=== PATIENT | male | born 1970 | race Caucasian/White ===

== ENCOUNTER 2021-12-22 01:18 | Emergency (ER) | payer MEDICAID, SELFPAY ==
[2021-12-22 01:24] VITALS: BP 200/120; PULSE 66; RESP 18; TEMP 36.9; O2SAT 99
--- NOTE | 2021-12-22 01:45 | DI.CT_ITS ---
Exam(s) CT RENAL COLIC WO EXAM: CT RENAL COLIC WO CLINICAL HISTORY: right flank pain. TECHNIQUE: Imaging Protocol: Axial computed tomography images with coronal and sagittal reformatted images were created and reviewed. CONTRAST MATERIAL: Noncontrast COMPARISON: No exams were available for comparison FINDINGS: ABDOMEN: Lung Bases: Normal where visualized. Liver: Normal attenuation. No measurable mass. Gallbladder and biliary tract: Gallbladder unremarkable. Common bile duct is dilated to 17 millimete rs. No radiodense calculus . Pancreas: Normal density, no calcifications or inflammatory process. Spleen: Normal. Kidneys: Normal size, contour and axis. No radiodense stones or obstructive uropathy. Small area of low density in the upper pole of the right kidney, likely cyst. No suspicious masses seen. Adrenal glands: No masses seen. Abdominal Aorta: Abdominal portion non-dilated. PELVIS: Bladder: Symmetric distention, no gross wall thickening. Bowel: No obstruction or bowel wall thickening. Appendix normal. Moderate to increased quantity of s tool. Peritoneal cavity: No ascites, collection or mesenteric inflammatory response. Bones: Within normal limits. IMPRESSION: Dilatation of the common bile duct without visible obstructing stone or mass. Gallbladder appears no rmal. Small right presumed renal cyst. No evidence of hydronephrosis or calcifications. RADIATION DOSE DELIVERED: 1,217.08mGy.cm Total DLP DATA REPOSITORY: All CT scans at this facility are submitted to the National Radiology Data Registry (NRDR) Dose Index Registry (DIR) with the [employer] (A[employer]). RADIATION OPTIMIZATION: All CT scans at this facility use at least one of these dose optimization te chniques: automated exposure control; mA and/or kV adjustment per patient size (includes targeted exa ms where dose is matched to clinical indication); or iterative reconstruction.
--- NOTE | 2021-12-22 01:47 | W.ED.GENAD ---
Discharge Plan Disposition Patient Disposition: HOME Condition: Stable Discharge Details Clinical Impression: Back pain ED Provider: Luis Felipe Mendez Home Meds and New Rx's Prescriptions: Continued lisinopril 40 mg Tablet 40 mg PO DAILY 0RF amlodipine 10 mg Tablet 10 mg PO DAILY 0RF Discharge Instructions Instructions: Back Pain (ED) Additional Instructions: your urine did not show evidence of infection follow up with your primary care provider within 1 week and start taking your blood pressure medicine as prescribed if you feel more ill, have severe worsening pain or persistent vomit return to the emergency department Medical Decision Making 50 yo male with hx of htn, who has not taken his bp meds for a few days because he hasn't picked them up at the pharmacy, comes in with complaint of right lower back pain for several months with no known falls or trauma. He states he was seen intially at [facility] ER, had xrays done and was told it was pulled muscle. He states the pain has been constant and he can't think of anything that makes it better or worse. He has had intermittent nausea with it as well. No chest pain, dyspnea. He denies burning with urination or gross hematuria. He states he came in tonight because he googled his symptoms and was worried about a kidney infection based on this. He localizes the pain to the right lower back. No rashes, no erythema, no warmth. No midline pain, no saddle anesthesia, normal sensation and pulses in the legs and normal reflexes. Seems like it could be musculoskeletal, no findings to suggest cauda equina or spinal epidural abscess. Will evaluate for uti/pyelo with ua and also obtain renal colic ct to evaluate for kidney stone patient's pain resolved with one dose of toradol, labs unremarkble. CT shows no stone, they do note mild prominence of biliary tree. He has no upper abdomen pain and no tenderness on exam so feel this is likely incidental findings. No elevation in lfts so doubt acute obstruction of biliary tree. He is stable for d/c, I advised to f/u with his pcp and return precautions given. He was advised of findings on CT and if he develops ruq pain to return to the ED and also advised to let his pcp know of the findings Differential Diagnosis Differential Diagnosis: strain, spasm, uti, kidney stone Imaging Data Radiologic Study: Attestation: I personally reviewed and interpreted this imaging study as follows: Imaging: CT Scan Radiologist's impression: Mild prominence of the biliary ducts, correlate with patient labs to exclude obstruction with MRCP or ERCP for further evaluation as clinically indicated. Lab Data Lab results reviewed: Yes I reviewed the patient's lab results. HPI General Mode of arrival: ambulatory. Date/Time Provider Initiated Documentation: 12/22/21 01:20. Limitations to Documentation: no limitations. Information obtained by: patient. History of Present Illness 50 year old M presents to the emergency department with the chief complaint of right lower back pain, described as moderate, Quality is described as aching, and is localized to the back. Patient reports no radiation. Patient started experiencing this month(s) (3) and it has been constant. improves with No relieving factors improve symptom(s), No exacerbating factors reported . Patient notes nausea/vomiting. Patient did receive the following treatments prior to arrival, none Related Data Home Medications Medication Instructions Recorded Confirmed amlodipine 10 mg tablet 10 mg PO DAILY 12/22/21 12/22/21 lisinopril 40 mg tablet 40 mg PO DAILY 12/22/21 12/22/21 Allergies Allergy/AdvReac Type Severity Reaction Status Date / Time cephalexin [From Keflex] Allergy Unverified 12/22/21 01:29 General Stated Complaint: Urinary DILLON: 3 Review of Systems All systems reviewed & are unremarkable except as noted in HPI and below Constitutional Constitutional: Denies chills and Denies weakness Cardiovascular Cardiovascular: Denies chest pain and Denies dyspnea Respiratory Respiratory: Denies cough and Denies dyspnea Gastrointestinal Gastrointestinal: Denies abdominal pain Genitourinary Genitourinary: Denies dysuria Integumentary/Breasts Skin/Breast: Denies rash Neurologic Neurologic: Denies weakness [facility] Active Problems (Updated 12/22/21 @ 03:26 by Luis Felipe Mendez MD) Back pain (Acute) Social History Smoking/Tobacco Use Status: Never Smoking risk assessment performed?: Yes Drug use: Daily Substance use type: marijuana Do you feel safe at home: Yes Do you feel safe in your relationship?: Yes Course Vital Signs Vital signs: Vital Signs Temperature 36.9 C 12/22/21 01:24 Pulse 66 12/22/21 01:24 Respiratory Rate 18 12/22/21 01:24 Pulse Oximetry 99 12/22/21 01:24 Temperature 36.9 C 12/22/21 01:24 Temperature Source Skin 12/22/21 01:24 Pulse 66 12/22/21 01:24 Respiratory Rate 18 12/22/21 01:24 Respiratory Effort 12/22/21 01:27 Pulse Oximetry 99 12/22/21 01:24 Oxygen Delivery Method Room Air 12/22/21 01:24 Oxygen Flow Rate 0 12/22/21 01:24 Pain Level 8 12/22/21 01:27 Lab/Test Results Lab/Test Results: 12/22/21 01:40 Urine - Voided Urine Culture - Pending
[2021-12-22] MEDS: Ketorolac 15 MG/ML VIAL IVP (02:00)
[2021-12-22] MEDS: Normal Saline 1,000 ML 1000 ML IV (02:00)
[2021-12-22 02:01] LABS: Abs Immature Grans 0.02 10^3/uL (0.0-0.06); Absolute Basophil Count 0.07 10^3/uL (0.0-0.2); Absolute Eosinophil Count 0.42 10^3/uL (0.0-0.7); Absolute Lymphocyte Count 3.21 10^3/uL (1.2-3.4); Absolute Monocyte Count 0.69 10^3/uL (0.1-0.8); Basophils % 0.8; Eosinophils % 4.7; HCT 42.1 % (40.0-50.0); HGB 13.7 g/dL (13.5-17.5); Immature Grans % 0.2; Lymphocytes % 35.6; MCH 28.8 pg (27.0-33.0); MCHC 32.5 % (32.0-36.0); MCV 89 fL (80-95); MPV 9.8 fL (8.0-11.0); Monocytes % 7.7; Platelet Count 380 10^3/uL (130-400); RBC 4.75 10^6/uL (4.36-5.78); RDW 13.7 % (11.8-14.1); RDW-SD 44.5 fL; WBC 9.01 10^3/uL (4.4-10.8)
[2021-12-22 02:07] VITALS: BP 167/114; PULSE 59; RESP 18; O2SAT 99
[2021-12-22 02:11] LABS: Bilirubin Negative (Negative); Blood Negative (Negative); Clarity Clear (Clear); Glucose Negative (Negative); Ketones Negative (Negative); Leukocyte Esterase Negative (Negative); Nitrite Negative (Negative); Specific Gravity >= 1.030 (1.005-1.025); Urobilinogen 0.2 EU/dL (Up TO 0.2); pH 5.5 (5-8)
[2021-12-22 02:12] LABS: ALT 23 U/L (16-63); AST 18 U/L (15-37); Alkaline Phosphatase 69 U/L (46-116); Anion Gap 4.1 mmol/L (3-11); BUN 21 mg/dL (7-18); Bilirubin, Total 0.2 mg/dL (0.2-1.0); CO2 33.9 mmol/L (21.0-32.0); CREATININE 1.1 mg/dL (0.70-1.30); Calcium 8.8 mg/dL (8.5-10.1); Chloride 104 mmol/L (98-107); Glucose 123 mg/dL (74-106); Potassium 3.8 mmol/L (3.5-5.1); Sodium 142 mmol/L (136-145); Total Protein 7.6 g/dL (6.4-8.2)
[2021-12-22 02:16] VITALS: BP 164/92
--- NOTE | 2021-12-22 03:07 | DI.VRAD_ITS ---
PROCEDURE INFORMATION: Exam: CT Abdomen And Pelvis Without Contrast Exam date and time: 12/22/2021 1:56 AM Age: 50 years old Clinical indication: Abdominal pain; Patient HX: Right flank pain; Per PT: Ongoing 3 months TECHNIQUE: Imaging protocol: Computed tomography of the abdomen and pelvis without contrast. COMPARISON: No relevant prior studies available. FINDINGS: Liver: Normal. No mass. Gallbladder and bile ducts: Mild prominence of the biliary ducts, correlate with patient labs to exclude obstruction with MRCP or ERCP for further evaluation as clinically indicated. Pancreas: Normal. No ductal dilation. Spleen: Normal. No splenomegaly. Adrenal glands: Normal. No mass. Kidneys and ureters: Normal. No hydronephrosis. Stomach and bowel: Unremarkable. No obstruction. No mucosal thickening. Appendix: No evidence of appendicitis. Intraperitoneal space: Unremarkable. No free air. No significant fluid collection. Vasculature: Unremarkable. No abdominal aortic aneurysm. Lymph nodes: Unremarkable. No enlarged lymph nodes. Urinary bladder: Unremarkable as visualized. Reproductive: Unremarkable as visualized. Bones/joints: Unremarkable. No acute fracture. Soft tissues: Unremarkable. IMPRESSION: Mild prominence of the biliary ducts, correlate with patient labs to exclude obstruction with MRCP or ERCP for further evaluation as clinically indicated. Dictated and Authenticated by: Luis Felipe Marsh MD. Ordering:KATHIE Briscoe MD
[2021-12-22 03:36] LABS: Bilirubin, Total 0.2 mg/dL (0.2-1.0)
[2021-12-22 03:37] LABS: Bilirubin, Direct < 0.1 mg/dL (0.0-0.2)
--- OUTSIDE RECORDS SUMMARY | 2021-12-22 03:38 | XMS_ITS ---
:1970 Author Care Team Providers Name Role Phone JALEESA GALLO Primary Care Provider Unavailable Allergies Code Code System Name Reaction Severity Status Onset 20310128 RxNorm Keflex Hives ? Active ? RxNorm Sevoflurane Other Severe Active ? 20231025 RxNorm Tylenol ? ? Active ? Medications Name Status Start Date Stop Date ? ? Abilify 10 mg tablet Completed 07/11/2016 07/11/2016 1 (one) Tablet: qam - every morning amlodipine 10 mg tablet Active ? Not avai lable TAKE ONE TABLET BY MOUTH EVERY DAY FOLLOW UP APPOINTMENT NEEDED PER amoxicillin 500 mg tablet Completed 06/27/20152014 1 Tablet: three times daily azithromycin 250 mg tablet Completed 12/25/201112/29 1 (one) Tablet: see below azithromycin 500 mg tablet Completed ? 05/14 clindamycin HCl 300 mg capsule Completed ? 0 04/26/2019 cyclobenzaprine 10 mg tablet Active ? Not available TAKE ONE TABLET BY MOUTH THREE TIMES A DAY NEEDED divalproex 250 mg tablet,delayed release Completed 016 09/20/2015 2 (two) Tablet DR: at bedtime fluconazole 100 mg tablet Completed ? 2019 fluconazole 200 mg tablet Completed ? 2019 ibuprofen 200 mg capsule Active ? Not rupa ilable Take 4 capsules every 6 hours by oral route as needed. ibuprofen 600 mg tablet Completed 09/20/2015 09/20/19 16 1 Tablet: Every 8 hours as needed lisinopril 30 mg tablet Completed ? 01/06/20 19 Take 1 tablet every day by oral route. lisinopril 40 mg tablet Active ? Not avai lable TAKE ONE TABLET BY MOUTH EVERY DAY methylphenidate ER 27 mg tablet,extended release 24 hr Completed 12/22/2011 12/22/2011 1 Tablet ER: daily methylprednisolone 4 mg Completed ? 05/14/20 20 tablets in a dose pack naproxen 500 mg tablet Active ? Not avail able TAKE ONE TABLET BY MOUTH TWICE A DAY NEEDED nystatin 100,000 unit/mL oral Completed ? suspension oxycodone-acetaminophen 5 Completed ? 2019 mg-325 mg tablet Seroquel 100 mg tablet Completed ? 9 Take 1 tablet every day by oral route at bedtime. Seroquel XR 50 mg tablet,extended release Completed 201109/15/2011 1 Tablet ER 24HR: at bedtime sulfamethoxazole 800 mg-trimethoprim 160 mg tablet Active ? Not available TAKE ONE TABLET BY MOUTH TWICE A DAY FOR 10 DAYS tramadol 50 mg tablet Completed 09/20/2015 09/20/2015 1 (one) Tablet: every 8 hours as needed trazodone 50 mg tablet Completed ? 8 Take 1 tablet every day by oral route. Vyvanse 50 mg capsule Completed 09/20/2015 09/20/2015 1 Capsule: daily Vyvanse 70 mg capsule Completed ? 12/22/2018 Take 1 capsule every day by oral route. Problems Name Status Onset Date Source ? Hypertensive Disorder Active 05/14/2020 ? Bipolar Disorder Unknown ? History Borderline Personality Disorder Active ? History Depressive Disorder Unknown ? History Attention Deficit Hyperactivity Active ? History Disorder Otitis Media Unknown ? History Hearing Loss Active ? History Essential Hypertension Unknown ? History Benign Essential Hypertension Unknown ? Hi story Allergic Rhinitis Unknown ? History Cellulitis and Abscess of Foot Unknown ? H istory Excluding Toe Procedure by Method Unknown ? History Long-term Current Use of Drug Therapy Unknown ? History Procedures None recorded. Results Lab Results Date Name Specimen Result Interpretation Description Value Range Status Address ? 01/03/2021 CBC W/ Auto BLD ? Wbc 8.4 10*3/uL 5.0-10.0 F inal [place] Diff 10*3/uL [facility] (Internal) : [address] ? ? BLD ? Rbc 5.07 10*6/uL 4.60-6.00 Final N orth 10*6/uL [facility] (Internal) : [address] ? ? BLD ? Hgb 14.6 g/dL 14.0-18.0 Final Nort h g/dL [facility] (Internal) : [address] ? ? BLD ? Hct 44.2 % 41.0-51.0 Final [place] [facility] (Internal) : [address] [place] ? ? BLD ? Mcv 87.2 fL 80.0-96.[address] [facility] (Internal) : [address] ? ? BLD ? Mch 28.8 pg 26.0-32.0 Final [facility] (Internal) : [address] [place] ? ? BLD ? Mchc 33.0 g/dL 31.0-35.0 [facility] (Internal) : [address] [place] ? ? BLD ? Rdw 13.2 % 11.5-14.5 Final [facility] (Internal) : [address] ? ? BLD ? Plt 348 10*3/uL 130-450 Final Nort h 10*3/uL [facility] (Internal) : [address] ? ? BLD ? Anc 3.94 10*3/uL ? Final Nort [facility] (Internal) : [address] [place] ? ? BLD ? Nlr 1.26 0.00-3.20 Final [facility] (Internal) : [address] [place] ? ? BLD ? Neutro 46.9 % 40.0-75.0 Final [facility] (Internal) : [address] [place] ? ? BLD ? Lymph 37.3 % 20.0-50.0 Final [facility] (Internal) : [address] [place] ? ? BLD ? Ward 8.1 % 2.0-10.0 Final [facility] (Internal) : [address] [place] ? ? BLD High Eos 7.2 % 1.0-6.0 % Final [facility] (Internal) : [address] [place] ? ? BLD ? Baso 0.4 % 0.0-1.0 % Final [facility] (Internal) : [address] ? ? BLD ? Ig 0.1 % 0.0-0.9 % Final [facility] (Internal) : [address] 01/03/2021 HbA1C BLD ? Ha1C 5.7 % 4.0-6.0 % Final Nor th (Hemoglobin Count ry a1C), Blood Hospi semaj Lab (Internal) : [address] 01/03/2021 BMP, Serum or S ? g/r 98 mg/dL 74-106 [facility] Plasma mg/dL [facility] ([facility] : [address] ? ? S High Bun 23 mg/dL 9-20 Final North mg/dL [facility] ([facility]) : [address] [place] ? ? S ? Crea 1.10 mg/dL 0.66-1.25 Final Nor th mg/dL [facility] ([facility]) : [address] t ? ? S ? Ca 9.5 mg/dL 8.4-10.2 Final North mg/dL [facility] ([facility]) : [address] t ? ? S ? Na 143 mmol/L 137-145 Final [facility] mmol/L [facility] ([facility]) : [address] t ? ? S ? K 4.4 mmol/L 3.5-5.1 Final [facility] mmol/L [facility] ([facility]) : [address] t ? ? S ? Cl 103 mmol/L 98-107 Final [facility] mmol/L [facility] ([facility]) : [address] [place] ? ? S High Tco2 31.0 mmol/L 22.0-30.0 Final No rth mmol/L [facility] ([facility]) : [address] 01/03/2021 Lipid Panel, S ? Chol 179 mg/dL 50-200 [facility] Serum mg/dL [facility] ([facility]) : [address] t ? ? S ? Trig 94 mg/dL 10-150 Final North mg/dL [facility] (Internal) : [address] t ? ? S ? Hdl 46 mg/dL 40-60 Final [facility] mg/dL [facility] ([facility]) : [address] t ? ? S ? Ldl 114 mg/dL 0-130 Final North mg/dL [facility] (Internal) : [address] 04/20/2019 Pathology TISS - Report results ? Final N orth Study below [facility] ([facility] : [address] 12/22/2018 CBC W/ Auto BLD - Wbc 9.0 10*3/uL 5.0-10.0 F inal [place] Diff 10*3/uL [facility] ([facility] : [address] ? ? BLD - Rbc 4.87 10*6/uL 4.60-6.00 Final N orth 10*6/uL [facility] (Internal) : [address] ? ? BLD - Hgb 14.2 g/dL 14.0-18.0 Final Nort h g/dL [facility] (Internal) : [address] ? ? BLD - Hct 42.4 % 41.0-51.0 Final [facility] (Internal) : [address] ? ? BLD - Mcv 87.1 fL 80.0-96.0 Final [facility] (Internal) : [address] ? ? BLD - Mch 29.2 pg 26.0-32.0 Final [place] pg [facility] (Internal) : [address] ? ? BLD - Mchc 33.5 g/dL 31.0-35.0 Final Nort h g/dL [facility] (Internal) : [address] ? ? BLD - Rdw 13.1 % 11.5-14.5 Final [facility] (Internal) : [address] ? ? BLD - Plt 346 10*3/uL 130-450 Final Nort h 10*3/uL [facility] (Internal) : [address] ? ? BLD - Anc 4.91 10*3/uL ? Final Nort h [facility] (Internal) : [address] ? ? BLD - Neutro 54.4 % 40.0-75.0 Final [facility] (Internal) : [address] ? ? BLD - Lymph 30.8 % 20.0-50.0 Final [facility] ([facility] : [address] ? ? BLD - Ward 7.2 % 2.0-10.0 Final [facility] (Internal) : [address] ? ? BLD High Eos 6.8 % 1.0-6.0 % Final [facility] (Internal) : [address] ? ? BLD - Baso 0.4 % 0.0-1.0 % Final [facility] (Internal) : [address] ? ? BLD - Ig 0.4 % 0.0-0.9 % Final [facility] (Internal) : [address] 12/22/2018 CMP, Serum or S - g/r 99 mg/dL 74-106 [facility] Plasma mg/dL [facility] ([facility] : [address] ? ? S High Bun 22 mg/dL 9-20 Final [place] mg/dL [facility] ([facility]) : [address] t ? ? S - Crea 1.10 mg/dL 0.66-1.25 Final Nor th mg/dL [facility] ([facility]) : [address] ? ? S - Ca 9.3 mg/dL 8.4-10.2 Final [facility] mg/dL [facility] ([facility] : [address] t ? ? S - Na 139 mmol/L 137-145 Final [facility] mmol/L [facility] ([facility]) : [address] ? ? S - K 4.3 mmol/L 3.5-5.1 Final [facility] mmol/L [facility] ([facility] : [address] t ? ? S - Cl 104 mmol/L 98-107 Final [facility] mmol/L [facility] ([facility]) : [address] ? ? S - Tco2 27.0 mmol/L 22.0-30.0 Final No rth mmol/L [facility] ([facility]) : [address] ? ? S - Tp 7.3 g/dL 6.3-8.2 Final North g/dL [facility] (Internal) : [address] ? ? S - Alb 4.0 g/dL 3.5-5.0 Final [place] g/dL [facility] (Internal) : [address] t ? ? S - Tbil 0.3 mg/dL 0.2-1.3 Final [place] mg/dL [facility] (Internal) : [address] t ? ? S - Alp 57 U/L 50-136 Final North U/L [facility] (Internal) : [address] ? ? S - Alt (Sgpt) 29 U/L 21-72 U/L Final No rth [facility] (Internal) : [address] ? ? S - Ast (Sgot) 29 U/L 17-59 U/L Final No rth [facility] (Internal) : [address] 12/22/2018 TSH, Serum or S - Tsh 3.00 0.47-4.68 Fin [facility] Plasma u[IU]/mL u[IU]/mL [facility] L ab (Internal) : [address] ? Venipuncture ? Location Right ? ? P _nc Primary Antecubital [facility] [place]: [address], [place] ? ? ? Needle 21g ? ? P_nc Prim raghu Vacutainer Care [place]: [address], [place] ? ? ? Number of 1 ? ? P_nc P rimary Attempts Care [place]: [address], [place] ? ? ? Successful Yes ? ? P_nc Primary Care [place]: [address], [place] ? ? ? Dressing Pressure ? ? P_nc Primary Band-aid Care Applied [place]: [address], [place] ? ? ? Initials hj ? ? P_nc Pr imary Care [place]: [address], [place] ? Venipuncture ? Location Right ? ? P _nc Primary Antecubital Care [place]: [address] ? ? ? Needle 21g ? ? P_nc Prim raghu [facility] [place] ? ? ? Number of 1 ? ? P_nc P rimary Attempts Care [place]: [address] [facility] [place] ? ? ? Successful Yes ? ? P_nc Primary Care [place]: [address] [facility], [place] ? ? ? Dressing Pressure ? ? P_nc Primary Band-aid Care Applied [place]: [address] [facility], [place] ? ? ? Initials DG ? ? P_nc Pr im[facility] [place] [address] [facility] Past Encounters 01/03/2021 Pain of Right Ankle Joint; Laceration of Lower Leg; Hypertensive Disorder Lisbeth Hernández, RECORD FILING CLERK: [address] [facility] [place] [id number], Ph. Social History Tobacco Smoking Status Never Smoker Notes: [facility] List Vaccine Type influenza, seasonal, injectable, preserv ative free 09/12/2011?0.5 mL 06/19/2014?0.5 mL tetanus toxoid, unspecified formulation 08/24/2016 Plan of Care Reminders Provider Appointments None ? ? recorded. Lab None ? ? recorded. Referral None ? ? recorded. Procedures None ? ? recorded. Surgeries None ? ? recorded. Imaging None ? ? recorded. Vitals 01/03/2021 01:40PM Acute 20 Weight Blood Pressure (1) 208/112 mm[Hg] (2) 194/114 mm[Hg] 05/14/2020 08:00AM Follow Up 20 Weight Blood Pressure 116.89 kg 136/84 mm[Hg] 04/26/2019 10:40AM Acute 20 Height Weight BMI Blood Pressure 183.52 cm 117.03 kg 34.7 kg/m2 150/90 mm[Hg] 12/22/2018 08:00AM Follow Up 20 Height Weight BMI Blood Pressure 183.52 cm 126.1 kg 37.4 kg/m2 134/100 mm[Hg] 02/03/2018 10:40AM Acute 20 Height Weight BMI Blood Pressure 186.05 cm 122.65 kg 35.4 kg/m2 (1) 178/113 mm[ Hg] (2) 172/112 mm[H g] 07/11/2016 Weight Blood Pressure 109.91 kg 148/96 mm[Hg] 09/20/2015 Weight Blood Pressure 110.63 kg 150/100 mm[Hg] 06/27/2015 Height Weight Blood Pressure 183.52 cm 116.57 kg (1) 154/103 mm[Hg] (2) 165/105 mm[Hg] 07/26/2014 Weight Blood Pressure 118.71 kg 136/72 mm[Hg] 06/19/2014 Weight Blood Pressure 111.4 kg 144/90 mm[Hg] 05/10/2014 Height Weight Blood Pressure 185.42 cm 112.9 kg (1) 220/124 mm[Hg] (2) 170/114 mm[Hg] (3) 154/112 mm[Hg] (4) 194/116 mm[Hg] (5) 174/110 mm[Hg] 04/23/2012 Height Weight Blood Pressure 185.42 cm 107 kg (1) 162/120 mm[Hg] (2) 154/110 mm[Hg] 12/25/2011 Weight Blood Pressure 113.76 kg (1) 146/108 mm[Hg] (2) 144/100 mm[Hg] 12/22/2011 Weight Blood Pressure 112.85 kg (1) 154/94 mm[Hg] (2) 150/96 mm[Hg] 10/31/2011 Height Blood Pressure 648.21 cm (1) 170/100 mm[Hg] (2) 162/108 mm[Hg] 10/01/2011 Height Weight Blood Pressure 185.42 cm 112.49 kg 160/88 mm[Hg] 09/12/2011 Height Weight Blood Pressure 185.42 cm 107.14 kg 166/104 mm[Hg]
== END 2021-12-22 03:31 | disposition home or self-care (01) ==
LOC: ER 03:37
PROVIDERS: Emergency Provider Emergency Medicine
DX: M54.50 Low back pain, unspecified (principal); R10.9 Unspecified abdominal pain; I10 Essential (primary) hypertension
CPT/HCPCS: 36415; 80053; 96361; 96374; 99284; 74176; 81003; 82247; 82248; 83735; 85025; 87086; J1885